=== PATIENT | male | born 1960 | race Caucasian/White ===

== ENCOUNTER 2017-09-18 19:54 | Emergency (ER) | payer BC ==
[~2017-09-18] VITALS: Ht 195.6 cm; Wt 146.0 kg
[~2017-09-18 19:54] MED LIST: FLUO-1 PO; LISI-360 PO; MOBI15TA PO; PRED20 PO; SYNT200T PO
[2017-09-18 21:11] VITALS: BP 125/67; PULSE 86; RESP 20; TEMP 98.1; O2SAT 96
[2017-09-18] MEDS ORDERED: LEVO.2 PO (21:27)
[2017-09-18] MEDS ORDERED: SPIR25TA PO (21:27)
[2017-09-18] MEDS ORDERED: METO25TA3 PO (21:27)
[2017-09-18] MEDS ORDERED: [UNRECOGNIZED DRUG - OTHER] (21:27)
--- NOTE | 2017-09-18 21:41 | PD ---
HPI Chief Complaint: Abdominal Pain Time Seen by Provider: 21:40 Travel History International Travel<30 days: No Contact w/Intl Traveler<30days: No Traveled to known affect area: No History of Present Illness HPI 57-year-old male came to the emergency room with history of abdominal pain for past 2-3 days. Patient describes the pain in the mid epigastric area but not much radiation. No aggravating or relieving symptoms. Today he was in the car when he got nauseous and vomited and noticed some bright red blood. No history of lightheadedness or dizziness. No history of blood per rectum. The blood in the vomit made him concerned and he came to the emergency room. Patient has history of polyps in his colon and gets colonoscopy every 3 years. Last colonoscopy was about 2 years ago. They just moved from [place] and his kineseologist is in [place]. Patient also has history of gastric ulcer long time ago. Currently he is not taking any NSAIDs, does not drink alcohol or smoke cigarettes. He has history of some cardiac disease and is on medications. Not on any blood thinners. Vital signs were stable. [facility] Past Medical History Narrative Medical List of his past medical, surgical, social and family history is reviewed from the nursing note Depression: Yes Heart Rhythm Problems: Yes High Cholesterol: Yes Coronary Artery Disease: Yes Hypertension: Yes Thyroid Disease: Yes Tetanus Vaccination: > 5 Years Influenza Vaccination: No Past Surgical History Abdominal Surgery: Yes (HERNIA REPAIR) Appendectomy: Yes Cardiac Surgery: Yes Joint Replacement: Yes (LEFT KNEE) Pacemaker: Yes (PACED AND DEFIB) Tonsillectomy: Yes Social History Alcohol Use: No Tobacco Use: No Substance Use: No Allergies-Medications (Allergen,Severity, Reaction): Coded Allergies: No Known Allergies (Unverified Adverse Reaction, Unknown, 09/18/17) Comments List of his allergies reviewed from the nursing note. Reported Meds & Prescriptions Reported Meds & Active Scripts Active Omeprazole 20 Mg Tab 20 Mg PO DAILY Reported Entresto (Sacubitril-Valsartan) 49-51 Mg Tab 1 Tab PO DIRECTED Metoprolol Tartrate 25 Mg Tab Unknown Dose PO DIRECTED Synthroid (Levothyroxine Sodium) 200 Mcg Tab 200 Mcg PO DAILY Spironolactone 25 Mg Tab Unknown Dose PO DAILY Narrative Medication List of his home medications reviewed from the nursing note. Review of Systems Except as stated in HPI: all other systems reviewed are Neg Gastrointestinal: Positive: Nausea, Vomiting, Abdominal Pain, Hematemesis Physical Exam Narrative GENERAL: Awake, alert, morbidly obese, anxious, mildest SKIN: Focused skin assessment warm/dry. HEAD: Atraumatic. Normocephalic. EYES: Pupils equal and round. No scleral icterus. No injection or drainage. ENT: No nasal bleeding or discharge. Mucous membranes pink and moist. NECK: Trachea midline. No JVD. CARDIOVASCULAR: Regular rate and rhythm. No murmur appreciated. RESPIRATORY: No accessory muscle use. Clear to auscultation. Breath sounds equal bilaterally. GASTROINTESTINAL: Abdomen soft, tender on palpation in the epigastric area, nondistended. Hepatic and splenic margins not palpable. MUSCULOSKELETAL: No obvious deformities. No clubbing. No cyanosis. No edema. NEUROLOGICAL: Awake and alert. No obvious cranial nerve deficits. Motor grossly within normal limits. Normal speech. PSYCHIATRIC: Appropriate mood and affect; insight and judgment normal. Data Data Last Documented VS Vital Signs Date Time Temp Pulse Resp B/P (MAP) Pulse Ox O2 Delivery O2 Flow Rate FiO2 09/19/17 00:26 72 16 116/66 (83) 99 09/18/17 23:35 Room Air 09/18/17 21:11 98.1 Orders Orders Complete Blood Count With Diff (09/18/17 21:49) Comprehensive Metabolic Panel (09/18/17 21:49) Lipase (09/18/17 21:49) Prothrombin Time / Inr (Pt) (09/18/17 21:49) Urinalysis - C+S If Indicated (09/18/17 21:49) Ct Abd/Pel W Iv Contrast(Rout) (09/18/17 21:49) Iv Access Insert/Monitor (09/18/17 21:49) Ecg Monitoring (09/18/17 21:49) Oximetry (09/18/17 21:49) Ondansetron Inj (Zofran Inj) (09/18/17 22:00) Pantoprazole Inj (Protonix Inj) (09/18/17 22:00) Sodium Chlor 0.9% 1000 Ml Inj (Ns 1000 M (09/18/17 21:49) Sodium Chloride 0.9% Flush (Ns Flush) (09/18/17 22:00) Type And Screen (09/18/17 22:00) Iohexol 350 Inj (Omnipaque 350 Inj) (09/18/17 23:39) Ed Discharge Order (09/19/17 00:13) Labs Laboratory Tests Test 09/18/17 22:05 09/18/17 23:58 White Blood Count 8.7 TH/MM3 Red Blood Count 5.60 MIL/MM3 Hemoglobin 16.0 GM/DL Hematocrit 47.2 % Mean Corpuscular Volume 84.2 FL Mean Corpuscular Hemoglobin 28.6 PG Mean Corpuscular Hemoglobin Concent 34.0 % Red Cell Distribution Width 13.3 % Platelet Count 248 TH/MM3 Mean Platelet Volume 7.7 FL Neutrophils (%) (Auto) 62.7 % Lymphocytes (%) (Auto) 27.9 % Monocytes (%) (Auto) 6.4 % Eosinophils (%) (Auto) 2.4 % Basophils (%) (Auto) 0.6 % Neutrophils # (Auto) 5.4 TH/MM3 Lymphocytes # (Auto) 2.4 TH/MM3 Monocytes # (Auto) 0.6 TH/MM3 Eosinophils # (Auto) 0.2 TH/MM3 Basophils # (Auto) 0.1 TH/MM3 CBC Comment DIFF FINAL Differential Comment Prothrombin Time 10.6 SEC Prothromb Time International Ratio 1.0 RATIO Blood Urea Nitrogen 13 MG/DL Creatinine 1.10 MG/DL Random Glucose 100 MG/DL Total Protein 8.0 GM/DL Albumin 3.8 GM/DL Calcium Level 9.2 MG/DL Alkaline Phosphatase 80 U/L Aspartate Amino Transf (AST/SGOT) 12 U/L Alanine Aminotransferase (ALT/SGPT) 22 U/L Total Bilirubin 0.7 MG/DL Sodium Level 141 MEQ/L Potassium Level 3.8 MEQ/L Chloride Level 108 MEQ/L Carbon Dioxide Level 25.4 MEQ/L Anion Gap 8 MEQ/L Estimat Glomerular Filtration Rate 69 ML/MIN Lipase 144 U/L Urine Color YELLOW Urine Turbidity CLEAR Urine pH 5.5 Urine Specific [place] GREATER/EQUAL 1.030 Urine Protein NEG mg/dL Urine Glucose (UA) NEG mg/dL Urine Ketones NEG mg/dL Urine Occult Blood NEG Urine Nitrite NEG Urine Bilirubin NEG Urine Urobilinogen 0.2 MG/DL Urine Leukocyte Esterase NEG Urine RBC 0-2 /hpf Urine WBC 0-2 /hpf Urine Squamous Epithelial Cells 0-5 /hpf Urine Bacteria NONE /hpf Microscopic Urinalysis Comment CULT NOT INDICATED MDM Medical Decision Making Medical Screen Exam Complete: Yes Emergency Medical Condition: Yes Medical Record Reviewed: Yes Differential Diagnosis Peptic ulcer disease, acute pancreatitis, acute cholecystitis, abdominal pain NOS Narrative Course 10:35 PM CBC is within normal limits. Awaiting for the rest of the blood test results and a CAT scan to be done and resulted. Patient is getting IV Zofran and IV Protonix. 12:05 AM blood test results are back and within normal limits. CT scan is negative. I will discharge him home on prescription for omeprazole. Procedures EKG Prior to Arrival: No HemaPrompt Point of Care Internal Pos. & Neg. Controls: Passed Fecal Specimen Occult Blood: Negative Diagnosis Primary Impression: Abdominal pain Qualified Codes: R10.13 - Epigastric pain Additional Impression: Acute gastritis Qualified Codes: K29.01 - Acute gastritis with bleeding Referrals: Primary Care Physician Additional Instructions: Take the medication as per prescription direction. Do not eat or drink anything that is acidic in nature since it would make your peptic ulcer disease worse. Follow-up with primary care. You would require referral with a GI specialist. Med/Other Pt SpecificInfo: Prescription(s) given Scripts Omeprazole (Omeprazole) 20 Mg Tab 20 MG PO DAILY, #30 TAB 0 Refills Prov: Francisco Angela MD 09/19/17 Disposition: 01 DISCHARGE HOME Condition: Stable Francisco Angela MD September 18, 2017 21:41
[2017-09-18] MEDS ORDERED: SODIUM CHLOR 0.9% 1000 ML INJ 1,000 ML IV SCH (21:49)
[2017-09-18] MEDS ORDERED: ONDANSETRON HCL 4 MG/2 ML VIAL IVP ONE (22:00)
[2017-09-18] MEDS ORDERED: SODIUM CHLORIDE 0.9% FLUSH 10 ML FLUSH IV FLUSH PRN (22:00)
[2017-09-18] MEDS ORDERED: PANTOPRAZOLE SODIUM 40 MG VIAL IVP ONE (22:00)
[2017-09-18 22:03] VITALS: O2SAT 98
[2017-09-18 22:16] LABS: AUTOMATED NEUTROPHIL # 5.4 TH/MM3 (1.8-7.7); BASOPHIL # 0.1 TH/MM3 (0-0.2); BASOPHIL % 0.6 % (0.0-2.0); EOSINOPHIL # 0.2 TH/MM3 (0-0.4); EOSINOPHIL % 2.4 % (0.0-4.0); HEMATOCRIT 47.2 % (39.0-51.0); LYMPH % 27.9 % (9.0-44.0); LYMPHOCYTE # 2.4 TH/MM3 (1.0-4.8); MEAN CELL VOLUME 84.2 FL (80.0-100.0); MEAN CORPUSCULAR HEMOGLOBIN 28.6 PG (27.0-34.0); MEAN PLATELET VOLUME 7.7 FL (7.0-11.0); MONO % 6.4 % (0.0-8.0); MONOCYTE # 0.6 TH/MM3 (0-0.9); NEUT % 62.7 % (16.0-70.0); PLATELET COUNT 248 TH/MM3 (150-450); RED CELL DISTRIBUTION WIDTH 13.3 % (11.6-17.2); WHITE BLOOD COUNT 8.7 TH/MM3 (4.0-11.0)
[2017-09-18 22:24] LABS: CHLORIDE 108 MEQ/L (98-107); SODIUM (NA) 141 MEQ/L (136-145)
[2017-09-18 22:26] LABS: PROTHROMBIN TIME - PATIENT 10.6 SEC (9.8-11.6)
[2017-09-18 22:27] LABS: CALCIUM 9.2 MG/DL (8.5-10.1)
[2017-09-18 22:28] LABS: ALBUMIN 3.8 GM/DL (3.4-5.0); BICARBONATE 25.4 MEQ/L (21.0-32.0); BLOOD UREA NITROGEN 13 MG/DL (7-18); GLUCOSE,RANDOM 100 MG/DL (74-106)
[2017-09-18 22:30] LABS: ALT (GPT) 22 U/L (12-78); AST (GOT) 12 U/L (15-37)
[2017-09-18 22:31] LABS: GLOMERULAR FILTRATION RATE 69 ML/MIN (>89)
[2017-09-18 22:32] LABS: TOTAL BILIRUBIN ADULT 0.7 MG/DL (0.2-1.0)
[2017-09-18 22:33] LABS: ALKALINE PHOSPHATASE 80 U/L (45-117)
[2017-09-18 23:35] VITALS: BP 119/73; PULSE 66; RESP 16; O2SAT 97
[2017-09-18] MEDS ORDERED: IOHEXOL 350 MG/ML 10 ML VIAL (for RAD DIAG) IVCONTRAST ONE (23:39)
--- NOTE | 2017-09-18 23:51 | RADRPT ---
EXAM DATE/TIME: 09/18/2017 23:17 [place] COMPARISON: No previous studies available for comparison. INDICATIONS : Mid epigastric pain. IV CONTRAST: 75 cc Omnipaque 350 (iohexol) IV ORAL CONTRAST: No oral contrast ingested. RADIATION DOSE: 22.45 CTDIvol (mGy) MEDICAL HISTORY : Cardiovascular disease. SURGICAL HISTORY : Appendectomy. Pacemaker. ENCOUNTER: Initial ACUITY: 3 days PAIN SCALE: 5/10 LOCATION: upper quadrant mid TECHNIQUE: Volumetric scanning of the abdomen and pelvis was performed. Using automated exposure control and ad justment of the mA and/or kV according to patient size, radiation dose was kept as low as reasonably achievable to obtain optimal diagnostic quality images. DICOM format image data is available electro nically for review and comparison. FINDINGS: LOWER LUNGS: Mild linear atelectatic changes in the left base. Lung bases are otherwise clear LIVER: Homogeneous density without lesion. There is no dilation of the biliary tree. No calcified gallston es. A punctate density seen on dependent distribution of the gallbladder lumen could represent a smal l polyp. SPLEEN: Normal size without lesion. PANCREAS: Within normal limits. KIDNEYS: Normal in size and shape. Bilateral, punctate nonobstructing calculi in both kidneys, right greater t martinez left. ADRENAL GLANDS: Within normal limits. VASCULAR: There is no aortic aneurysm. BOWEL/MESENTERY: The stomach, small bowel, and colon demonstrate no acute abnormality. There is no free intraperitone al air or fluid. Surgical clips in the base of the cecum are characteristic of prior appendectomy ABDOMINAL WALL: Within normal limits. RETROPERITONEUM: There is no lymphadenopathy. BLADDER: No wall thickening or mass. REPRODUCTIVE: Dystrophic type prostate calcification. Prostate is otherwise normal in size. INGUINAL: There is no lymphadenopathy or hernia. MUSCULOSKELETAL: Within normal limits for patient age. CONCLUSION: 1. I do not see an acute intraperitoneal or pelvic process to explain current clinical symptoms. 2. Patient appears to be status post appendectomy. 3. Small nonobstructing renal calculi bilaterally. Possible small gallbladder polyp. 4. The atelectatic changes in the left lung base. Shahbaz Davidson MD on September 18, 2017 at 23:45 Board Certified Radiologist. This report was verified electronically.
[2017-09-19 00:02] LABS: BILIRUBIN, URINE NEG (NEG); BLOOD, URINE NEG (NEG); GLUCOSE,URINE NEG (NEG); KETONE, URINE NEG (NEG); NITRITE,URINE NEG (NEG); PH, URINE 5.5 (5.0-8.5); URINE COLOR YELLOW (YELLW/STRAW); URINE LEUKOCYTE ESTERASE NEG (NEG)
[2017-09-19] MEDS ORDERED: OMEP20TA93 PO (00:06)
[2017-09-19 00:07] LABS: RBC, URINE 0-2 /hpf (0-3); SQUAMOUS EPITHELIAL CELL URINE 0-5 /hpf (0-5); WBC, URINE 0-2 /hpf (0-5)
[2017-09-19 00:26] VITALS: BP 116/66
[2017-09-19] MEDS ORDERED: SACU1TAB7 PO (10:30)
== END 2017-09-19 00:29 | disposition home or self-care (01) ==
LOC: PHEFT 19:54 → PHED 09-19 00:29
DX: K29.00 Acute gastritis without bleeding (principal); N20.0 Calculus of kidney; J98.11 Atelectasis; F32.9 Major depressive disorder, single episode, unspecified; E78.00 Pure hypercholesterolemia, unspecified; I25.10 Atherosclerotic heart disease of native coronary artery without angina pectoris; I10 Essential (primary) hypertension; E07.9 Disorder of thyroid, unspecified; Z79.899 Other long term (current) drug therapy
CPT/HCPCS: 74177; 80053; 81001; 83690; 85025; 85610; 86850; 86900; 86901; 96374; 96375; 99284; C9113; J2405; J7030; Q9967